=== PATIENT | female | born 1960 | race Caucasian/White ===

== ENCOUNTER 2019-08-11 07:03 | Emergency (ER) | payer BC, OTHER ==
[~2019-08-11] VITALS: Ht 160 cm; Wt 104.3 kg
[~2019-08-11 07:03] MED LIST: LOSARTAN POTAS100 MG PO; SINGULAIR 10 MG10 M1 PO; SYMBICORT160 MCG/4. INH
[2019-08-11 07:57] VITALS: BP 130/71
== END 2019-08-11 08:21 | disposition home or self-care (01) ==
LOC: ER 07:03
DX: M54.9 Dorsalgia, unspecified (principal); I10 Essential (primary) hypertension; J45.909 Unspecified asthma, uncomplicated